=== PATIENT | male | born 1930 | race Caucasian/White ===

== ENCOUNTER 2018-09-12 09:55 | Day surgery (SDC) | payer OTHER ==
[2018-09-03 15:44] VITALS: BMI 27.4
[2018-09-12] MEDS ORDERED: PROPOFOL 20 ML ONE (11:33)
[2018-09-12] MEDS ORDERED: KETOROLAC TROMETHAMINE 30 MG/1 ML VIAL ONE (11:36)
[2018-09-12] MEDS ORDERED: DEXAMETHASONE SOD PHOSPHATE 4 MG/1 ML VIAL ONE (11:36)
[2018-09-12] MEDS ORDERED: LIDOCAINE HCL 2% (50ML VIAL) INF ONE (11:36)
[2018-09-12] MEDS ORDERED: ONDANSETRON 4 MG/2 ML VIAL ONE (11:36)
[2018-09-12] MEDS ORDERED: oxyCODONE HCL 5 MG TABLET PO PRN ×2 (12:01)
[2018-09-12] MEDS ORDERED: ONDANSETRON 4 MG/2 ML VIAL IVPUSH PRN (12:01)
[2018-09-12] MEDS ORDERED: PROMETHAZINE HCL 25 MG/1 ML VIAL IVPUSH PRN (12:01)
[2018-09-12 12:12] VITALS: TEMP 97.9
[2018-09-12 12:58] VITALS: PULSE 62
[2018-09-12 13:00] VITALS: BP 140/76
--- NOTE | 2018-09-13 13:21 | OP ---
DATE OF ADMISSION: 09/12/2018 PREOPERATIVE DIAGNOSIS: Left carpal tunnel syndrome. POSTOPERATIVE DIAGNOSES: Left carpal tunnel syndrome. OPERATIVE PROCEDURE: Left carpal tunnel release.. SURGEON: Dennis Monreal MD ANESTHESIA: Local with sedation. COMPLICATIONS: None. ESTIMATED BLOOD LOSS: Minimal. INDICATION FOR PROCEDURE: The patient is an 88-year-old male with the above finding, indicated for operative treatment. The risks, benefits and alternatives were discussed with the patient at length and proper informed consent was obtained. DESCRIPTION OF PROCEDURE: After proper identification of the patient and the correct operative site, the patient was brought to the operating room and placed supine on the operating table with all prominences well padded. Sedation was given by the anesthesiologist. Local anesthesia was given with 2% lidocaine. The left upper extremity was prepped and draped in the usual sterile fashion. A well-padded tourniquet was placed over the sterile prep. An Esmarch bandage was used to exsanguinate the left upper extremity. The tourniquet was inflated to 250 mmHg. A longitudinal incision was made in the proximal aspect of the palm. The incision was taken sharply through the skin with blunt and sharp dissection through subcutaneous tissues. The palmar fascia was divided longitudinally. The transverse carpal ligament, along with the distal 4 cm of antebrachial fascia, was divided longitudinally under direct visualization and loupe magnification. This provided complete release of the median nerve at the wrist. The wound was irrigated with saline and repaired with 5-0 nylon suture. Sterile dressings were applied. The patient brought to the recovery room in stable condition. He tolerated the procedure well. DENNIS MONREAL M.D. [id number]
== END 2018-09-12 13:01 | disposition home or self-care (01) ==
LOC: FASU 09:55
PROVIDERS: ATTEND Orthopaedic Surgery Hand Surgery
PROC: 01N50ZZ Release Median Nerve, Open Approach (ICD-10-PCS; principal; 2018-09-12 11:30)
DX: G56.02 Carpal tunnel syndrome, left upper limb (principal)